=== PATIENT | male | born 1945 | race Asian ===

== ENCOUNTER 2016-04-02 05:19 | Emergency (ER) | payer MEDICARE, OTHER ==
[~2016-04-02] VITALS: Ht 154.9 cm; Wt 38.6 kg
[~2016-04-02 05:19] MED LIST: CARB200T5 GT; CHOL200035 GT; METO-296 GT; OMEP20 PO
[2016-04-02] MEDS ORDERED: DIATRIZOATE MEGLU/SOD 660/100 MG/ML 120 ML BOTTLE ONE (08:31)
[2016-04-02 09:47] VITALS: BP 116/47
== END 2016-04-02 09:48 | disposition home or self-care (01) ==
LOC: EMS 05:20
DX: Z93.1 Gastrostomy status (principal); Z88.8 Allergy status to other drugs, medicaments and biological substances
CPT/HCPCS: 36245; 49440; 99283; Q9963

== ENCOUNTER → 2016-06-12 | Outpatient (CLI) | payer MEDICARE, OTHER ==
[2016-06-12 12:42] LABS: BASOPHILS % (AUTO) 0.5 % (0.0-2.0); EOSINOPHILS % (AUTO) 5.8 % (1.0-6.0); HEMATOCRIT 37.7 % (41-53); HEMOGLOBIN 12.2 g/dL (13.5-17.5); LYMPHOCYTES # (AUTO) 2.5 K/uL (1.0-4.8); LYMPHOCYTES % (AUTO) 25.8 % (22.0-44.0); MEAN CORPUSCULAR HEMOGLOBIN 30.9 pg (26.0-34.0); MEAN CORPUSCULAR HGB CONC 32.3 G/dL (31.0-37.0); MEAN CORPUSCULAR VOLUME 96 fL (80-100); MONOCYTES # (AUTO) 0.8 K/uL (0.1-1.0); MONOCYTES % (AUTO) 8.6 % (2.0-9.0); NEUTROPHILS # (AUTO) 5.6 K/uL (1.8-7.7); NEUTROPHILS % (AUTO) 59.3 % (40.0-70.0); PLATELET COUNT (AUTO) 456 K/uL (150-450); RED BLOOD CELL COUNT(AUTO) 3.94 MIL/uL (4.50-5.90); RED CELL DISTRIBUTION WIDTH 14.1 % (11.5-14.5); WHITE BLOOD COUNT (AUTO) 9.5 K/uL (4.5-11.0)
[2016-06-12 13:39] LABS: ALANINE AMINOTRANSFERASE 27 U/L (12-78); ALBUMIN 3.3 g/dL (3.4-5.0); ANION GAP 11 mmol/L (8-16); ASPARTATE AMINOTRANSFERASE 22 U/L (15-37); BILIRUBIN,TOTAL 0.2 mg/dL (0.1-1.0); CALCIUM, TOTAL 8.7 mg/dL (8.8-10.5); CARBON DIOXIDE 28 mmol/L (22-29); CHLORIDE 102 mmol/L (98-107); CHOL/HDL RATIO 3.6 (4.2-7.3); CREATININE 0.81 mg/dL (0.60-1.30); GLOMERULAR FILTR. RATE CALC > 60 mL/min (>60); POTASSIUM 4.2 mmol/L (3.5-5.1); SODIUM SERUM 141 mmol/L (136-145); THYROID STIMULATING HORMONE 2.08 uIU/mL (0.36-3.74); UREA NITROGEN, BLOOD 19 mg/dL (7-18)
[2016-06-12 13:41] LABS: VITAMIN B12 LEVEL 1321 pg/mL (211-911)
[2016-06-12 17:34] LABS: PROSTATE SPECIFIC ANTIGEN < 0.13 ng/mL (0.00-4.00)
[2016-06-17 13:57] LABS: PRIMIDONE 8.4 ug/mL (5.0-12.0)
[2016-06-22 11:46] LABS: PHENOBARBITAL(PRIMIDONE) 16
== END | disposition home or self-care (01) ==
LOC: MSR 11:25
PROVIDERS: ATTEND Legal Medicine
DX: G40.909 Epilepsy, unspecified, not intractable, without status epilepticus (principal); J18.8 Other pneumonia, unspecified organism; E83.42 Hypomagnesemia
CPT/HCPCS: 80184; 80188; 82306; 82607; 82746; 83735; 84153; 84443

== ENCOUNTER 2016-08-09 12:42 | Emergency (ER) | payer MEDICARE, OTHER ==
[~2016-08-09] VITALS: Ht 154.9 cm; Wt 50.0 kg
[2016-08-09] MEDS ORDERED: DIATRIZOATE MEGLU/SOD 660/100 MG/ML 120 ML BOTTLE ONE (14:34)
[2016-08-09 16:05] VITALS: BP 146/67
== END 2016-08-09 17:05 | disposition home or self-care (01) ==
LOC: EMS 12:46
DX: K94.23 Gastrostomy malfunction (principal); R56.9 Unspecified convulsions; Z86.73 Personal history of transient ischemic attack (TIA), and cerebral infarction without residual deficits; Z86.61 Personal history of infections of the central nervous system; Z88.8 Allergy status to other drugs, medicaments and biological substances
CPT/HCPCS: 74000; 99283; Q9963

== ENCOUNTER → 2017-03-07 | Outpatient (CLI) | payer MEDICARE, OTHER ==
[2017-03-07 16:58] LABS: BASOPHILS % (AUTO) 0.6 % (0.0-2.0); EOSINOPHILS % (AUTO) 6.1 % (1.0-6.0); HEMATOCRIT 31.6 % (41-53); HEMOGLOBIN 10.9 g/dL (13.5-17.5); LYMPHOCYTES # (AUTO) 2.1 K/uL (1.0-4.8); LYMPHOCYTES % (AUTO) 19.4 % (22.0-44.0); MEAN CORPUSCULAR HEMOGLOBIN 31.6 pg (26.0-34.0); MEAN CORPUSCULAR HGB CONC 34.4 G/dL (31.0-37.0); MEAN CORPUSCULAR VOLUME 92 fL (80-100); MONOCYTES # (AUTO) 1.1 K/uL (0.1-1.0); MONOCYTES % (AUTO) 10.4 % (2.0-9.0); NEUTROPHILS # (AUTO) 6.8 K/uL (1.8-7.7); NEUTROPHILS % (AUTO) 63.5 % (40.0-70.0); PLATELET COUNT (AUTO) 381 K/uL (150-450); RED BLOOD CELL COUNT(AUTO) 3.44 MIL/uL (4.50-5.90); RED CELL DISTRIBUTION WIDTH 15.7 % (11.5-14.5)
[2017-03-07 17:14] LABS: ALANINE AMINOTRANSFERASE 22 U/L (12-78); ALBUMIN 2.8 g/dL (3.4-5.0); ALKALINE PHOSPHATASE 137 U/L (46-116); ANION GAP 7 mmol/L (8-16); ASPARTATE AMINOTRANSFERASE 26 U/L (15-37); BILIRUBIN,TOTAL 0.1 mg/dL (0.1-1.0); CALCIUM, TOTAL 8.4 mg/dL (8.8-10.5); CARBAMAZEPINE (TEGRETOL) 8.9 mcg/mL (4.0-12.0); CARBON DIOXIDE 27 mmol/L (22-29); CHLORIDE 100 mmol/L (98-107); CHOL/HDL RATIO 3.9 (4.2-7.3); CHOLESTEROL 159 mg/dL (131-200); CREATININE 0.83 mg/dL (0.60-1.30); GLOMERULAR FILTR. RATE CALC > 60 mL/min (>60); GLUCOSE,RANDOM 112 mg/dL (70-110); HDL CHOLESTEROL 41 mg/dL (40-60); LDL CHOL (CALC.) 89 mg/dL (0-130); POTASSIUM 3.9 mmol/L (3.5-5.1); SODIUM SERUM 134 mmol/L (136-145); THYROID STIMULATING HORMONE 1.83 uIU/mL (0.36-3.74); TOTAL PROTEIN, SERUM 8.5 g/dL (6.4-8.2); TRIGLYCERIDES 144 mg/dL (15-150); UREA NITROGEN, BLOOD 15 mg/dL (7-18)
== END | disposition home or self-care (01) ==
LOC: LABPV 15:18
PROVIDERS: ATTEND Legal Medicine
DX: K21.9 Gastro-esophageal reflux disease without esophagitis (principal); R56.9 Unspecified convulsions; Z79.899 Other long term (current) drug therapy
CPT/HCPCS: 80184; 80188; 82306; 84443

== ENCOUNTER → 2017-03-12 | Outpatient (CLI) | payer MEDICARE, OTHER ==
[2017-03-12 17:53] LABS: % IRON SATURATION 10.5 % (30-44)
[2017-03-12 19:26] LABS: FOLATE SERUM 16.4 ng/mL (5.4-)
[2017-03-17 07:28] LABS: ALPHA-1 (IFE & PEP) 0.4 g/dL (0.0-0.4); GAMMA GLOBULINS (IFE & ELP) 2.5 g/dL (0.4-1.8); IGM (IMMUNOFIXATION) 133 mg/dL (20-172)
== END | disposition home or self-care (01) ==
LOC: LABPV 14:55
PROVIDERS: ATTEND Legal Medicine
DX: Z00.01 Encounter for general adult medical examination with abnormal findings (principal); K21.9 Gastro-esophageal reflux disease without esophagitis; R79.89 Other specified abnormal findings of blood chemistry
CPT/HCPCS: 82607; 82728; 82746; 82784; 83540; 83550; 84155; 84165; 86334

== ENCOUNTER 2017-04-20 17:14 | Emergency (ER) | payer MEDICARE, OTHER ==
[~2017-04-20] VITALS: Ht 142.2 cm; Wt 39.4 kg
[~2017-04-20 17:14] MED LIST changes: -CHOL200035 GT; -OMEP20 PO; +PRIM250T30 PO
[2017-04-20 19:40] VITALS: BP 99/70
== END 2017-04-20 19:46 | disposition home or self-care (01) ==
LOC: EMS 17:15
DX: K94.23 Gastrostomy malfunction (principal); Z88.8 Allergy status to other drugs, medicaments and biological substances
CPT/HCPCS: 49450; 99284

== ENCOUNTER 2017-05-05 15:49 | Emergency (ER) | payer MEDICARE, OTHER ==
[~2017-05-05] VITALS: Ht 147.3 cm; Wt 40.9 kg
[2017-05-05 17:15] VITALS: BP 110/59
== END 2017-05-05 18:40 | disposition home or self-care (01) ==
LOC: EMS 15:56
DX: K94.23 Gastrostomy malfunction (principal); R62.59 Other lack of expected normal physiological development in childhood; J18.9 Pneumonia, unspecified organism; F72 Severe intellectual disabilities; Z86.61 Personal history of infections of the central nervous system; Z88.8 Allergy status to other drugs, medicaments and biological substances; Z79.899 Other long term (current) drug therapy
CPT/HCPCS: 43760; 99284

== ENCOUNTER 2017-05-28 21:00 | Emergency (ER) | payer MEDICARE, OTHER ==
[~2017-05-28] VITALS: Ht 154.9 cm; Wt 29.2 kg
[2017-05-28 23:16] VITALS: BP 106/58
== END 2017-05-28 23:19 | disposition home or self-care (01) ==
LOC: EMS 21:00
DX: K94.23 Gastrostomy malfunction (principal); Z88.8 Allergy status to other drugs, medicaments and biological substances
CPT/HCPCS: 99283

== ENCOUNTER 2017-06-02 08:45 | Emergency (ER) | payer MEDICARE, OTHER ==
[~2017-06-02] VITALS: Ht 147.3 cm; Wt 38.6 kg
[2017-06-02 11:07] LABS: BASOPHILS % (AUTO) 0.8 % (0.0-2.0); EOSINOPHILS % (AUTO) 4.6 % (1.0-6.0); HEMATOCRIT 34.4 % (41-53); HEMOGLOBIN 11.7 g/dL (13.5-17.5); LYMPHOCYTES # (AUTO) 2.6 K/uL (1.0-4.8); LYMPHOCYTES % (AUTO) 21.9 % (22.0-44.0); MEAN CORPUSCULAR HEMOGLOBIN 31.2 pg (26.0-34.0); MEAN CORPUSCULAR HGB CONC 33.9 G/dL (31.0-37.0); MEAN CORPUSCULAR VOLUME 92 fL (80-100); MONOCYTES # (AUTO) 0.7 K/uL (0.1-1.0); MONOCYTES % (AUTO) 5.8 % (2.0-9.0); NEUTROPHILS % (AUTO) 66.9 % (40.0-70.0); PLATELET COUNT (AUTO) 477 K/uL (150-450); RED BLOOD CELL COUNT(AUTO) 3.73 MIL/uL (4.50-5.90); RED CELL DISTRIBUTION WIDTH 15.7 % (11.5-14.5)
[2017-06-02 11:16] LABS: PROTHROMBIN TIME 10.3 SEC (9.4-11.6)
[2017-06-02 11:22] LABS: ANION GAP 11 mmol/L (8-16); CALCIUM, TOTAL 8.8 mg/dL (8.8-10.5); CARBON DIOXIDE 27 mmol/L (22-29); CHLORIDE 104 mmol/L (98-107); CREATININE 0.88 mg/dL (0.60-1.30); GLOMERULAR FILTR. RATE CALC > 60 mL/min (>60); GLUCOSE,RANDOM 109 mg/dL (70-110); POTASSIUM 3.9 mmol/L (3.5-5.1); SODIUM SERUM 142 mmol/L (136-145); UREA NITROGEN, BLOOD 18 mg/dL (7-18)
[2017-06-02] MEDS ORDERED: DIATRIZOATE MEGLU/SOD 660/100 MG/ML 120 ML BOTTLE ONE (13:23)
[2017-06-02 14:38] VITALS: BP 122/80
== END 2017-06-02 14:54 | disposition home or self-care (01) ==
LOC: EMS 08:46
DX: K94.23 Gastrostomy malfunction (principal); Z88.8 Allergy status to other drugs, medicaments and biological substances
CPT/HCPCS: 36415; 49450; 80048; 85025; 85610; 99284; Q9963

== ENCOUNTER 2017-12-05 15:11 | Inpatient (IN) | payer MEDICARE, OTHER ==
[~2017-12-05] VITALS: Ht 154.9 cm; Wt 38.0 kg
[2017-12-05 16:10] LABS: BASOPHILS % (AUTO) 0.3 % (0.0-2.0); EOSINOPHILS % (AUTO) 0.3 % (1.0-6.0); HEMATOCRIT 30.6 % (41-53); HEMOGLOBIN 10.5 g/dL (13.5-17.5); LYMPHOCYTES # (AUTO) 1.2 K/uL (1.0-4.8); LYMPHOCYTES % (AUTO) 8.1 % (22.0-44.0); MEAN CORPUSCULAR HEMOGLOBIN 31.3 pg (26.0-34.0); MEAN CORPUSCULAR HGB CONC 34.3 G/dL (31.0-37.0); MEAN CORPUSCULAR VOLUME 91 fL (80-100); MONOCYTES # (AUTO) 1.4 K/uL (0.1-1.0); MONOCYTES % (AUTO) 9.3 % (2.0-9.0); NEUTROPHILS # (AUTO) 12.3 K/uL (1.8-7.7); PLATELET COUNT (AUTO) 262 K/uL (150-450); RED BLOOD CELL COUNT(AUTO) 3.35 MIL/uL (4.50-5.90); RED CELL DISTRIBUTION WIDTH 15.4 % (11.5-14.5)
[2017-12-05 16:31] LABS: ANION GAP 4 mmol/L (8-16); CALCIUM, TOTAL 8.4 mg/dL (8.8-10.5); CARBON DIOXIDE 27 mmol/L (22-29); CHLORIDE 95 mmol/L (98-107); CREATININE 0.91 mg/dL (0.60-1.30); GLOMERULAR FILTR. RATE CALC > 60 mL/min (>60); GLUCOSE,RANDOM 109 mg/dL (70-110); POTASSIUM 4.9 mmol/L (3.5-5.1); SODIUM SERUM 126 mmol/L (136-145); UREA NITROGEN, BLOOD 28 mg/dL (7-18)
[2017-12-05] MEDS ORDERED: SODIUM CHLORIDE 0.9% 1,000 ML IV ONE ×2 (16:45→21:30)
[2017-12-05] MEDS ORDERED: POVIDONE-IODINE 10% 120 ML SOLUTION TP ONE (17:45)
[2017-12-05] MEDS ORDERED: DIATRIZOATE MEGLU/SOD 660/100 MG/ML 120 ML BOTTLE ONE (19:02)
[2017-12-05 20:55] LABS: ANION GAP 6 mmol/L (8-16); CALCIUM, TOTAL 8.7 mg/dL (8.8-10.5); CARBON DIOXIDE 24 mmol/L (22-29); CHLORIDE 98 mmol/L (98-107); CREATININE 0.86 mg/dL (0.60-1.30); GLOMERULAR FILTR. RATE CALC > 60 mL/min (>60); GLUCOSE,RANDOM 104 mg/dL (70-110); POTASSIUM 4.9 mmol/L (3.5-5.1); SODIUM SERUM 128 mmol/L (136-145); UREA NITROGEN, BLOOD 25 mg/dL (7-18)
[2017-12-05] MEDS ORDERED: MAGNESIUM HYDROXIDE SUSPENSION 30 ML UDCUP PEG PRN (21:30)
[2017-12-05] MEDS ORDERED: MAGNESIUM HYDROXIDE SUSPENSION 30 ML UDCUP PO PRN (21:30)
[2017-12-05] MEDS ORDERED: ALBUTEROL SULFATE 2.5 MG/0.5 ML NEB SOLUTION NEB PRN (21:30)
[2017-12-05] MEDS ORDERED: ACETAMINOPHEN 650 MG/20.3 ML SOLUTION UDCUP PEG PRN (21:30)
[2017-12-05 22:15] VITALS: BP 134/77
[2017-12-06 04:00] VITALS: BP 125/64
[2017-12-06 07:03] LABS: ANION GAP 8 mmol/L (8-16); CALCIUM, TOTAL 6.4 mg/dL (8.8-10.5); CARBON DIOXIDE 21 mmol/L (22-29); CHLORIDE 111 mmol/L (98-107); CREATININE 0.57 mg/dL (0.60-1.30); GLOMERULAR FILTR. RATE CALC > 60 mL/min (>60); GLUCOSE,RANDOM 84 mg/dL (70-110); POTASSIUM 3.4 mmol/L (3.5-5.1); SODIUM SERUM 140 mmol/L (136-145); UREA NITROGEN, BLOOD 15 mg/dL (7-18)
[2017-12-06 07:15] LABS: BASOPHILS % (AUTO) 0.7 % (0.0-2.0); EOSINOPHILS % (AUTO) 1.6 % (1.0-6.0); HEMATOCRIT 23.5 % (41-53); LYMPHOCYTES # (AUTO) 1.4 K/uL (1.0-4.8); LYMPHOCYTES % (AUTO) 14.9 % (22.0-44.0); MEAN CORPUSCULAR HEMOGLOBIN 32.2 pg (26.0-34.0); MEAN CORPUSCULAR HGB CONC 34.8 G/dL (31.0-37.0); MEAN CORPUSCULAR VOLUME 93 fL (80-100); MONOCYTES # (AUTO) 0.8 K/uL (0.1-1.0); MONOCYTES % (AUTO) 8.8 % (2.0-9.0); NEUTROPHILS # (AUTO) 6.8 K/uL (1.8-7.7); PLATELET COUNT (AUTO) 207 K/uL (150-450); RED BLOOD CELL COUNT(AUTO) 2.54 MIL/uL (4.50-5.90); RED CELL DISTRIBUTION WIDTH 15.5 % (11.5-14.5)
[2017-12-06 07:16] LABS: HEMOGLOBIN 8.2 g/dL (13.5-17.5)
[2017-12-06] MEDS ORDERED: DEXTROSE 5%-0.45% SODIUM CHL 1,000 ML IV ONE (08:15)
[2017-12-06] MEDS ORDERED: POTASSIUM CHLORIDE 10% 40 MEQ/30 ML LIQUID UDCUP PEG ONE (08:15)
[2017-12-06 08:23] VITALS: BP 137/82
[2017-12-06] MEDS ORDERED: CarBAMazepine 100 MG CHEWABLE TABLET PEG SCH (09:00)
[2017-12-06] MEDS: DOCUSATE SODIUM 100 MG CAPSULE PO SCH ×2 (09:00→21:00)
[2017-12-06] MEDS: HEPARIN SODIUM,PORCINE 5,000 UNITS/ML VIAL SQ SCH ×2 (09:00→21:01)
[2017-12-06] MEDS ORDERED: PANTOPRAZOLE SODIUM 40 MG DR TABLET PO SCH (09:00)
[2017-12-06] MEDS: LANSOPRAZOLE 30 MG SOLUBLE TABLET PEG SCH (09:55)
[2017-12-06] MEDS: CarBAMazepine 100 MG CHEWABLE TABLET PEG SCH ×2 (09:56→21:01)
[2017-12-06 11:19] LABS: APPEARANCE,URINE CLOUDY (CLEAR); BILIRUBIN,URINE NEGATIVE (NEGATIVE); GLUCOSE, URINE (UA) NEGATIVE (NEGATIVE); KETONES,URINE TRACE mg/dL (NEGATIVE); LEUKOCYTE ESTERASE ,URINE LARGE (NEGATIVE); NITRATE,URINE NEGATIVE (NEGATIVE); OCCULT BLOOD,URINE LARGE (NEGATIVE); PH,URINE 6.5 (5.0-8.0); PROTEIN,URINE POS 1+ (NEGATIVE)
[2017-12-06 11:27] LABS: BACTERIA,URINE Many /HPF (None Seen)
[2017-12-06 11:31] VITALS: BP 137/78
[2017-12-06 15:37] VITALS: BP 123/72
[2017-12-06 20:06] VITALS: BP 137/67
[2017-12-06 23:44] VITALS: BP 139/66
[2017-12-07 04:45] VITALS: BP 149/89
[2017-12-07 06:30] LABS: BASOPHILS % (AUTO) 0.6 % (0.0-2.0); EOSINOPHILS % (AUTO) 3.3 % (1.0-6.0); HEMATOCRIT 30.3 % (41-53); HEMOGLOBIN 10.3 g/dL (13.5-17.5); LYMPHOCYTES # (AUTO) 1.8 K/uL (1.0-4.8); LYMPHOCYTES % (AUTO) 18.2 % (22.0-44.0); MEAN CORPUSCULAR HEMOGLOBIN 31.4 pg (26.0-34.0); MEAN CORPUSCULAR HGB CONC 34.1 G/dL (31.0-37.0); MEAN CORPUSCULAR VOLUME 92 fL (80-100); MONOCYTES % (AUTO) 10.8 % (2.0-9.0); NEUTROPHILS # (AUTO) 6.5 K/uL (1.8-7.7); NEUTROPHILS % (AUTO) 67.1 % (40.0-70.0); PLATELET COUNT (AUTO) 289 K/uL (150-450); RED CELL DISTRIBUTION WIDTH 15.3 % (11.5-14.5)
[2017-12-07 06:52] LABS: ANION GAP 7 mmol/L (8-16); CALCIUM, TOTAL 8.7 mg/dL (8.8-10.5); CARBON DIOXIDE 27 mmol/L (22-29); CHLORIDE 99 mmol/L (98-107); CREATININE 0.68 mg/dL (0.60-1.30); GLOMERULAR FILTR. RATE CALC > 60 mL/min (>60); GLUCOSE,RANDOM 112 mg/dL (70-110); POTASSIUM 4.4 mmol/L (3.5-5.1); SODIUM SERUM 133 mmol/L (136-145); UREA NITROGEN, BLOOD 9 mg/dL (7-18)
[2017-12-07 08:00] VITALS: BP 126/86
[2017-12-07] MEDS: LANSOPRAZOLE 30 MG SOLUBLE TABLET PEG SCH (08:00)
[2017-12-07] MEDS: CarBAMazepine 100 MG CHEWABLE TABLET PEG SCH (08:00)
[2017-12-07] MEDS: HEPARIN SODIUM,PORCINE 5,000 UNITS/ML VIAL SQ SCH (08:00)
[2017-12-07] MEDS: DOCUSATE SODIUM 100 MG CAPSULE PO SCH (08:01)
[2017-12-07] MEDS ORDERED: CefTRIAXone SODIUM 1 GM in DEXTROSE 5%-WATER 10 ML IV ONE (10:30)
[2017-12-07 11:15] VITALS: BP 145/81
== END 2017-12-07 13:23 | disposition home or self-care (01) | DRG 393 ==
LOC: EMS 15:12 → 6N 21:00
PROVIDERS: ADMIT Internal Medicine; ATTEND Internal Medicine
PROC: 0D20XUZ Change Feeding Device in Upper Intestinal Tract, External Approach (ICD-10-PCS; principal; 2017-12-05)
DX: K94.23 Gastrostomy malfunction (principal); E43 Unspecified severe protein-calorie malnutrition; E87.1 Hypo-osmolality and hyponatremia; G93.1 Anoxic brain damage, not elsewhere classified; E46 Unspecified protein-calorie malnutrition; Z68.1 Body mass index [BMI] 19.9 or less, adult; N39.0 Urinary tract infection, site not specified; E86.0 Dehydration; R13.10 Dysphagia, unspecified; R62.7 Adult failure to thrive; S06.9X0A Unspecified intracranial injury without loss of consciousness, initial encounter; X58.XXXA Exposure to other specified factors, initial encounter; D64.9 Anemia, unspecified; G40.909 Epilepsy, unspecified, not intractable, without status epilepticus; Z66 Do not resuscitate; E87.6 Hypokalemia; Z90.49 Acquired absence of other specified parts of digestive tract; Z87.01 Personal history of pneumonia (recurrent); Y93.89 Activity, other specified; Y92.89 Other specified places as the place of occurrence of the external cause; Y99.8 Other external cause status
CPT/HCPCS: 74018; 87086; 90686; 96360; 96361; 99285; J0696; J1644; J7030; J7060

== ENCOUNTER 2018-04-08 11:26 | Day surgery (SDC) | payer MEDICARE, OTHER ==
[~2018-04-08] VITALS: Ht 142.2 cm; Wt 30.7 kg
[~2018-04-08 11:26] MED LIST changes: -CARB200T5 GT; +CARBL PEG; +OMEP20 PEG; -PRIM250T30 PO; +SODIUM CHLORIDE 0.9% 1,000 ML IV ONE
[2018-04-08] MEDS ORDERED: PROPOFOL 1% 20 ML VIAL IVP ONE (12:00)
[2018-04-08] MEDS: SODIUM CHLORIDE 0.9% 1,000 ML IV ONE (13:15)
== END 2018-04-08 15:20 | disposition home or self-care (01) ==
LOC: SURGERY 11:26
PROVIDERS: ATTEND Internal Medicine Gastroenterology
DX: K94.23 Gastrostomy malfunction (principal); G80.8 Other cerebral palsy; G93.89 Other specified disorders of brain; Z87.01 Personal history of pneumonia (recurrent); Z90.49 Acquired absence of other specified parts of digestive tract; Z87.440 Personal history of urinary (tract) infections; Z87.19 Personal history of other diseases of the digestive system; Z91.048 Other nonmedicinal substance allergy status; Z86.69 Personal history of other diseases of the nervous system and sense organs; Z79.899 Other long term (current) drug therapy; Z98.890 Other specified postprocedural states; Z83.511 Family history of glaucoma; Z82.0 Family history of epilepsy and other diseases of the nervous system; Z82.49 Family history of ischemic heart disease and other diseases of the circulatory system; Z83.42 Family history of familial hypercholesterolemia; Z80.1 Family history of malignant neoplasm of trachea, bronchus and lung; Z80.0 Family history of malignant neoplasm of digestive organs; Z82.69 Family history of other diseases of the musculoskeletal system and connective tissue
CPT/HCPCS: 43246; J2704; J7030

== ENCOUNTER 2018-05-13 15:28 | Inpatient (IN) | payer MEDICARE, OTHER ==
[~2018-05-13] VITALS: Ht 142.2 cm; Wt 37.4 kg
[~2018-05-13 15:28] MED LIST changes: -METO-296 GT; +METO-296 PO; -SODIUM CHLORIDE 0.9% 1,000 ML IV ONE
[2018-05-13] MEDS ORDERED: PRIM50 PO (15:53)
[2018-05-13] MEDS ORDERED: CARB100 PO (15:53)
[2018-05-13] MEDS ORDERED: SODIUM CHLORIDE 0.9% 1,050 ML IV ONE (15:58)
[2018-05-13] MEDS ORDERED: 0.9% SODIUM CHLORIDE 10 ML SYRINGE IVP PRN (16:00)
[2018-05-13 16:54] LABS: BASOPHILS % (AUTO) 0.2 % (0.0-2.0); EOSINOPHILS % (AUTO) 0.5 % (1.0-6.0); LYMPHOCYTES # (AUTO) 0.8 K/uL (1.0-4.8); LYMPHOCYTES % (AUTO) 3.3 % (22.0-44.0); MEAN CORPUSCULAR HEMOGLOBIN 27.7 pg (26.0-34.0); MEAN CORPUSCULAR HGB CONC 33.2 G/dL (31.0-37.0); MEAN CORPUSCULAR VOLUME 83 fL (80-100); MONOCYTES # (AUTO) 0.9 K/uL (0.1-1.0); MONOCYTES % (AUTO) 3.8 % (2.0-9.0); PLATELET COUNT (AUTO) 358 K/uL (150-450); RED BLOOD CELL COUNT(AUTO) 2.28 MIL/uL (4.50-5.90); RED CELL DISTRIBUTION WIDTH 17.7 % (11.5-14.5)
[2018-05-13 17:01] LABS: HEMOGLOBIN 6.3 g/dL (13.5-17.5); NEUTROPHILS % (AUTO) 92.2 % (40.0-70.0)
[2018-05-13 17:03] LABS: ANION GAP 7 mmol/L (8-16); CARBON DIOXIDE 25 mmol/L (22-29); CHLORIDE 100 mmol/L (98-107); CREATININE 0.86 mg/dL (0.60-1.30); GLOMERULAR FILTR. RATE CALC > 60 mL/min (>60); GLUCOSE,RANDOM 135 mg/dL (70-110); POTASSIUM 3.8 mmol/L (3.5-5.1); SODIUM SERUM 132 mmol/L (136-145); UREA NITROGEN, BLOOD 32 mg/dL (7-18)
[2018-05-13 17:13] LABS: B-TYPE NATRIURETIC PEPTIDE 212 pg/mL (0-100); INR 1.1 (0.9-1.1); LACTIC ACID 2.3 mmol/L (0.4-2.0); PROTHROMBIN TIME 11.6 SEC (9.4-11.6)
[2018-05-13] MEDS ORDERED: CefTRIAXone 1 GM/DEXTROSE 50 ML IV ONE (17:15)
[2018-05-13] MEDS ORDERED: AZITHROMYCIN 500 MG/NS 250 ML IV ONE (17:15)
[2018-05-13 17:19] LABS: ALANINE AMINOTRANSFERASE 30 U/L (12-78); ALBUMIN 1.7 g/dL (3.4-5.0); ALKALINE PHOSPHATASE 121 U/L (46-116); ASPARTATE AMINOTRANSFERASE 42 U/L (15-37); BILIRUBIN,TOTAL 0.5 mg/dL (0.1-1.0); CARBAMAZEPINE (TEGRETOL) 12.8 mcg/mL (4.0-12.0); CREATINE KINASE, TOTAL ONLY 25 U/L (39-308); TOTAL PROTEIN, SERUM 7.3 g/dL (6.4-8.2)
[2018-05-13 17:24] LABS: PLATELET MORPHOLOGY COMMENT NORMAL
[2018-05-13 17:55] LABS: INFLUENZA TYPE A NEGATIVE FOR TYPE A (NEGATIVE); INFLUENZA TYPE B NEGATIVE FOR TYPE B (NEGATIVE)
[2018-05-13] MEDS ORDERED: ALBUTEROL SULFATE 2.5 MG/0.5 ML NEB SOLUTION NEB ONE (19:00)
[2018-05-13] MEDS ORDERED: IPRATROPIUM BROMIDE 0.5 MG/2.5 ML NEB SOLUTION NEB ONE (19:00)
[2018-05-13] MEDS ORDERED: ACETAMINOPHEN 1000 MG/ISO-OSM 100 ML IV ONE (19:45)
[2018-05-13] MEDS ORDERED: IBUPROFEN 600 MG TABLET PO PRN (20:45)
[2018-05-13] MEDS ORDERED: ACETAMINOPHEN 325 MG TABLET PO PRN (20:45)
[2018-05-13] MEDS ORDERED: SODIUM CHLORIDE 0.9% 1,000 ML IV ONE (21:00)
[2018-05-13] MEDS ORDERED: MAGNESIUM HYDROXIDE SUSPENSION 30 ML UDCUP PO PRN (21:15)
[2018-05-13] MEDS ORDERED: ONDANSETRON HCL 4 MG/2 ML VIAL IVP PRN (21:15)
[2018-05-13] MEDS ORDERED: BISACODYL 10 MG RECTAL RECTAL SUPPOSITORY PR PRN (21:15)
[2018-05-13] MEDS ORDERED: NOREPINEPHRINE 4 MG/D5%-WATER 250 ML IV PRN (21:20)
[2018-05-13] MEDS ORDERED: SODIUM CHLORIDE 0.9% 250 ML IV ONE (22:16)
[2018-05-13 22:28] VITALS: BP 68/30
[2018-05-13 22:42] VITALS: BP 89/58
[2018-05-13 23:22] VITALS: BP 78/57
[2018-05-14] VITALS: BP 111/43
[2018-05-14] MEDS: SODIUM CHLORIDE 0.9% 1,000 ML IV SCH ×2 (01:10→10:17)
[2018-05-14] MEDS: IPRATROPIUM BROMIDE 0.5 MG/2.5 ML NEB SOLUTION NEB SCH ×4 (01:51→20:00)
[2018-05-14] MEDS: ALBUTEROL SULFATE 2.5 MG/0.5 ML NEB SOLUTION NEB SCH ×4 (01:51→20:00)
[2018-05-14 04:00] VITALS: BP 129/69
[2018-05-14 08:00] VITALS: BP 107/58
[2018-05-14] MEDS: ENOXAPARIN SODIUM 40 MG/0.4 ML PF SYRINGE SQ SCH (08:16)
[2018-05-14] MEDS: PANTOPRAZOLE SODIUM 40 MG/VIAL IVP SCH (08:16)
[2018-05-14] MEDS: CarBAMazepine 100 MG CHEWABLE TABLET PO SCH ×3 (08:17→20:58)
[2018-05-14] MEDS: PRIMIDONE 250 MG TABLET PO SCH (08:17)
[2018-05-14] MEDS: METOCLOPRAMIDE HCL 10 MG TABLET PO SCH ×4 (08:17→20:58)
[2018-05-14 10:04] LABS: BASOPHILS % (AUTO) 0.2 % (0.0-2.0); EOSINOPHILS % (AUTO) 0.1 % (1.0-6.0); HEMATOCRIT 27.2 % (41-53); HEMOGLOBIN 9.1 g/dL (13.5-17.5); LYMPHOCYTES # (AUTO) 0.6 K/uL (1.0-4.8); LYMPHOCYTES % (AUTO) 3.3 % (22.0-44.0); MEAN CORPUSCULAR HEMOGLOBIN 28.3 pg (26.0-34.0); MEAN CORPUSCULAR HGB CONC 33.3 G/dL (31.0-37.0); MEAN CORPUSCULAR VOLUME 85 fL (80-100); MONOCYTES % (AUTO) 5.2 % (2.0-9.0); NEUTROPHILS # (AUTO) 17.4 K/uL (1.8-7.7); PLATELET COUNT (AUTO) 345 K/uL (150-450); RED CELL DISTRIBUTION WIDTH 17.5 % (11.5-14.5)
[2018-05-14 10:05] LABS: NEUTROPHILS % (AUTO) 91.2 % (40.0-70.0)
[2018-05-14 11:03] LABS: LACTIC ACID 3.3 mmol/L (0.4-2.0)
[2018-05-14 11:06] LABS: ANION GAP 11 mmol/L (8-16); CALCIUM, TOTAL 7.7 mg/dL (8.8-10.5); CARBON DIOXIDE 22 mmol/L (22-29); CHLORIDE 104 mmol/L (98-107); CHOL/HDL RATIO 7.8 (4.2-7.3); CHOLESTEROL 62 mg/dL (131-200); CREATINE KINASE, TOTAL ONLY 44 U/L (39-308); CREATININE 0.87 mg/dL (0.60-1.30); FREE T4 (FREE THYROXINE) 1.25 ng/dL (0.76-1.46); GLOMERULAR FILTR. RATE CALC > 60 mL/min (>60); GLUCOSE,RANDOM 99 mg/dL (70-110); HDL CHOLESTEROL 8 mg/dL (40-60); LDL CHOL (CALC.) 39 mg/dL (0-130); POTASSIUM 3.9 mmol/L (3.5-5.1); SODIUM SERUM 137 mmol/L (136-145); THYROID STIMULATING HORMONE 6.58 uIU/mL (0.36-3.74); TRIGLYCERIDES 76 mg/dL (15-150); UREA NITROGEN, BLOOD 22 mg/dL (7-18)
[2018-05-14 12:00] VITALS: BP 104/57
[2018-05-14] MEDS: MetroNIDAZOLE 500 MG/NACL 100 ML IV SCH ×2 (13:38→20:59)
[2018-05-14 16:00] VITALS: BP 119/52
[2018-05-14] MEDS: CefTRIAXone 1 GM/DEXTROSE 50 ML IV SCH (16:53)
[2018-05-14] MEDS: AZITHROMYCIN 250 MG in SODIUM CHLORIDE 0.9% 150 ML IV SCH (17:50)
[2018-05-14 20:00] VITALS: BP 115/37
[2018-05-14] MEDS: VANCOMYCIN HCL 750 MG in DEXTROSE 5%-WATER 250 ML IV SCH (20:55)
[2018-05-15] VITALS (17 sets, daily range): BP systolic 51–120; BP diastolic 32–76
[2018-05-15] MEDS: ALBUTEROL SULFATE 2.5 MG/0.5 ML NEB SOLUTION NEB SCH ×4 (00:52→20:23)
[2018-05-15] MEDS: IPRATROPIUM BROMIDE 0.5 MG/2.5 ML NEB SOLUTION NEB SCH ×4 (00:52→20:23)
[2018-05-15] MEDS: MetroNIDAZOLE 500 MG/NACL 100 ML IV SCH ×3 (04:44→22:11)
[2018-05-15] MEDS: SODIUM CHLORIDE 0.9% 1,000 ML IV SCH ×2 (04:45→11:40)
[2018-05-15 06:11] LABS: BASOPHILS % (AUTO) 0.2 % (0.0-2.0); EOSINOPHILS % (AUTO) 0 % (1.0-6.0); LYMPHOCYTES # (AUTO) 1.1 K/uL (1.0-4.8); LYMPHOCYTES % (AUTO) 4.9 % (22.0-44.0); MEAN CORPUSCULAR HGB CONC 33.3 G/dL (31.0-37.0); MEAN CORPUSCULAR VOLUME 84 fL (80-100); MONOCYTES # (AUTO) 0.7 K/uL (0.1-1.0); MONOCYTES % (AUTO) 3.2 % (2.0-9.0); NEUTROPHILS # (AUTO) 19.8 K/uL (1.8-7.7); PLATELET COUNT (AUTO) 277 K/uL (150-450); RED BLOOD CELL COUNT(AUTO) 2.43 MIL/uL (4.50-5.90); RED CELL DISTRIBUTION WIDTH 16.9 % (11.5-14.5)
[2018-05-15 06:49] LABS: ANION GAP 13 mmol/L (8-16); CALCIUM, TOTAL 7.6 mg/dL (8.8-10.5); CARBON DIOXIDE 19 mmol/L (22-29); CHLORIDE 108 mmol/L (98-107); CREATININE 0.73 mg/dL (0.60-1.30); GLOMERULAR FILTR. RATE CALC > 60 mL/min (>60); GLUCOSE,RANDOM 113 mg/dL (70-110); POTASSIUM 3.3 mmol/L (3.5-5.1); SODIUM SERUM 140 mmol/L (136-145); UREA NITROGEN, BLOOD 15 mg/dL (7-18)
[2018-05-15 07:23] LABS: HEMOGLOBIN 6.8 g/dL (13.5-17.5)
[2018-05-15 07:24] LABS: HEMATOCRIT 20.4 % (41-53); NEUTROPHILS % (AUTO) 91.7 % (40.0-70.0)
[2018-05-15] MEDS: PANTOPRAZOLE SODIUM 40 MG/VIAL IVP SCH (07:47)
[2018-05-15] MEDS: VANCOMYCIN HCL 750 MG in DEXTROSE 5%-WATER 250 ML IV SCH ×2 (07:47→20:09)
[2018-05-15] MEDS: METOCLOPRAMIDE HCL 10 MG TABLET PO SCH ×4 (09:10→20:09)
[2018-05-15] MEDS: CarBAMazepine 100 MG CHEWABLE TABLET PO SCH ×3 (09:10→20:09)
[2018-05-15] MEDS: ENOXAPARIN SODIUM 40 MG/0.4 ML PF SYRINGE SQ SCH (09:10)
[2018-05-15] MEDS: PRIMIDONE 250 MG TABLET PO SCH (09:10)
[2018-05-15 09:19] LABS: PLATELET MORPHOLOGY COMMENT GIANT PLTS PRESENT
[2018-05-15] MEDS ORDERED: PRIM250T24 PO (11:57)
[2018-05-15] MEDS ORDERED: DiphenhydrAMINE HCL 50 MG/ML VIAL IVP ONE (12:00)
[2018-05-15] MEDS ORDERED: SODIUM CHLORIDE 0.9% 250 ML IV ONE (13:03)
[2018-05-15] MEDS: CefTRIAXone 1 GM/DEXTROSE 50 ML IV SCH (15:53)
[2018-05-15] MEDS: EPOETIN ALFA 10,000 UNITS/ML VIAL SQ SCH (16:54)
[2018-05-15] MEDS: AZITHROMYCIN 250 MG in SODIUM CHLORIDE 0.9% 150 ML IV SCH (16:55)
[2018-05-16 00:02] VITALS: BP 123/55
[2018-05-16] MEDS: ALBUTEROL SULFATE 2.5 MG/0.5 ML NEB SOLUTION NEB SCH ×4 (01:28→19:33)
[2018-05-16] MEDS: IPRATROPIUM BROMIDE 0.5 MG/2.5 ML NEB SOLUTION NEB SCH ×4 (01:28→19:33)
[2018-05-16 04:20] VITALS: BP 95/48
[2018-05-16] MEDS: MetroNIDAZOLE 500 MG/NACL 100 ML IV SCH ×3 (04:50→22:12)
[2018-05-16 06:47] LABS: HEMATOCRIT 26.4 % (41-53); HEMOGLOBIN 9.1 g/dL (13.5-17.5); MEAN CORPUSCULAR HEMOGLOBIN 28.1 pg (26.0-34.0); MEAN CORPUSCULAR HGB CONC 34.3 G/dL (31.0-37.0); MEAN CORPUSCULAR VOLUME 82 fL (80-100); PLATELET COUNT (AUTO) 251 K/uL (150-450); RED BLOOD CELL COUNT(AUTO) 3.23 MIL/uL (4.50-5.90); RED CELL DISTRIBUTION WIDTH 15.8 % (11.5-14.5)
[2018-05-16 07:13] LABS: ANION GAP 13 mmol/L (8-16); CALCIUM, TOTAL 7.1 mg/dL (8.8-10.5); CARBON DIOXIDE 19 mmol/L (22-29); CHLORIDE 109 mmol/L (98-107); CREATININE 0.87 mg/dL (0.60-1.30); GLOMERULAR FILTR. RATE CALC > 60 mL/min (>60); GLUCOSE,RANDOM 136 mg/dL (70-110); SODIUM SERUM 141 mmol/L (136-145); UREA NITROGEN, BLOOD 12 mg/dL (7-18); VANCOMYCIN,RANDOM 17.3 mcg/mL (25.0-50.0)
[2018-05-16 07:32] LABS: POTASSIUM 2.8 mmol/L (3.5-5.1)
[2018-05-16] MEDS: VANCOMYCIN HCL 750 MG in DEXTROSE 5%-WATER 250 ML IV SCH ×2 (07:53→20:39)
[2018-05-16] MEDS: PANTOPRAZOLE SODIUM 40 MG/VIAL IVP SCH (07:53)
[2018-05-16 08:05] LABS: BAND NEUTROPHILS % (MANUAL) 11 % (0-5); LYMPHOCYTES % (MANUAL) 10 % (22-44); MONOCYTES % (MANUAL) 2 % (2-9); SEGMENTED NEUTROPHILS % 77 % (40-70)
[2018-05-16] MEDS: ENOXAPARIN SODIUM 40 MG/0.4 ML PF SYRINGE SQ SCH (08:26)
[2018-05-16] MEDS: CarBAMazepine 100 MG CHEWABLE TABLET PO SCH ×3 (08:27→20:39)
[2018-05-16] MEDS: METOCLOPRAMIDE HCL 10 MG TABLET PO SCH ×4 (08:27→20:39)
[2018-05-16] MEDS: PRIMIDONE 250 MG TABLET PO SCH (08:27)
[2018-05-16 08:29] VITALS: BP 102/52
[2018-05-16] MEDS ORDERED: POTASSIUM CHLORIDE 10% 40 MEQ/30 ML LIQUID UDCUP GT ONE (09:00)
[2018-05-16] MEDS: SODIUM HYPOCHLORITE 0.25% [HALF STRENGTH] 473 ML SOLUTION TP SCH (09:36)
[2018-05-16 11:35] VITALS: BP 95/48
[2018-05-16] MEDS: SODIUM CHLORIDE 0.9% 1,000 ML IV SCH (13:19)
[2018-05-16] MEDS: CefTRIAXone 1 GM/DEXTROSE 50 ML IV SCH (15:08)
[2018-05-16 15:58] VITALS: BP 103/56
[2018-05-16] MEDS: AZITHROMYCIN 250 MG in SODIUM CHLORIDE 0.9% 150 ML IV SCH (17:09)
[2018-05-16 19:56] VITALS: BP 108/61
[2018-05-17 00:41] VITALS: BP 111/68
[2018-05-17] MEDS: ALBUTEROL SULFATE 2.5 MG/0.5 ML NEB SOLUTION NEB SCH ×4 (02:44→19:43)
[2018-05-17] MEDS: IPRATROPIUM BROMIDE 0.5 MG/2.5 ML NEB SOLUTION NEB SCH ×4 (02:44→19:43)
[2018-05-17 04:27] VITALS: BP 125/66
[2018-05-17] MEDS: MetroNIDAZOLE 500 MG/NACL 100 ML IV SCH ×3 (05:32→21:45)
[2018-05-17 07:31] VITALS: BP 123/66
[2018-05-17 07:48] LABS: ANION GAP 10 mmol/L (8-16); CALCIUM, TOTAL 7.2 mg/dL (8.8-10.5); CARBON DIOXIDE 22 mmol/L (22-29); CHLORIDE 110 mmol/L (98-107); CREATININE 0.69 mg/dL (0.60-1.30); GLOMERULAR FILTR. RATE CALC > 60 mL/min (>60); GLUCOSE,RANDOM 137 mg/dL (70-110); POTASSIUM 3.7 mmol/L (3.5-5.1); SODIUM SERUM 142 mmol/L (136-145); UREA NITROGEN, BLOOD 11 mg/dL (7-18)
[2018-05-17] MEDS: PANTOPRAZOLE SODIUM 40 MG/VIAL IVP SCH (08:05)
[2018-05-17] MEDS: VANCOMYCIN HCL 750 MG in DEXTROSE 5%-WATER 250 ML IV SCH ×2 (08:05→20:02)
[2018-05-17] MEDS: CarBAMazepine 100 MG CHEWABLE TABLET PO SCH ×3 (08:06→21:45)
[2018-05-17] MEDS: ENOXAPARIN SODIUM 40 MG/0.4 ML PF SYRINGE SQ SCH (08:06)
[2018-05-17] MEDS: METOCLOPRAMIDE HCL 10 MG TABLET PO SCH ×4 (08:06→21:44)
[2018-05-17] MEDS: PRIMIDONE 250 MG TABLET PO SCH (08:06)
[2018-05-17] MEDS: MULTIVITAMINS WITH MINERALS, THERAPEUTIC 15 ML UDCUP GT SCH (08:06)
[2018-05-17] MEDS: SODIUM CHLORIDE 0.9% 1,000 ML IV SCH (08:08)
[2018-05-17 11:54] VITALS: BP 106/65
[2018-05-17] MEDS: SODIUM HYPOCHLORITE 0.25% [HALF STRENGTH] 473 ML SOLUTION TP SCH (11:57)
[2018-05-17] MEDS: EPOETIN ALFA 10,000 UNITS/ML VIAL SQ SCH (11:57)
[2018-05-17 15:59] VITALS: BP 124/71
[2018-05-17] MEDS: CefTRIAXone 1 GM/DEXTROSE 50 ML IV SCH (16:31)
[2018-05-17 19:45] VITALS: BP 115/61
[2018-05-17] MEDS: MUPIROCIN CALCIUM 2% 22 GM OINTMENT NASAL SCH (21:44)
[2018-05-18 00:21] VITALS: BP 116/62
[2018-05-18] MEDS: SODIUM CHLORIDE 0.9% 1,000 ML IV SCH ×3 (01:30→14:00)
[2018-05-18] MEDS: IPRATROPIUM BROMIDE 0.5 MG/2.5 ML NEB SOLUTION NEB SCH ×3 (02:46→15:01)
[2018-05-18] MEDS: ALBUTEROL SULFATE 2.5 MG/0.5 ML NEB SOLUTION NEB SCH ×3 (02:46→15:01)
[2018-05-18 04:19] VITALS: BP 101/64
[2018-05-18] MEDS: MetroNIDAZOLE 500 MG/NACL 100 ML IV SCH ×2 (05:30→14:10)
[2018-05-18 06:49] LABS: HEMATOCRIT 26.9 % (41-53); HEMOGLOBIN 9.2 g/dL (13.5-17.5); MEAN CORPUSCULAR HEMOGLOBIN 28.1 pg (26.0-34.0); MEAN CORPUSCULAR HGB CONC 34.3 G/dL (31.0-37.0); MEAN CORPUSCULAR VOLUME 82 fL (80-100); PLATELET COUNT (AUTO) 182 K/uL (150-450); RED BLOOD CELL COUNT(AUTO) 3.28 MIL/uL (4.50-5.90); RED CELL DISTRIBUTION WIDTH 16.8 % (11.5-14.5)
[2018-05-18 06:57] LABS: ANION GAP 10 mmol/L (8-16); CALCIUM, TOTAL 6.9 mg/dL (8.8-10.5); CARBON DIOXIDE 23 mmol/L (22-29); CHLORIDE 108 mmol/L (98-107); CREATININE 0.64 mg/dL (0.60-1.30); GLOMERULAR FILTR. RATE CALC > 60 mL/min (>60); GLUCOSE,RANDOM 133 mg/dL (70-110); SODIUM SERUM 141 mmol/L (136-145); UREA NITROGEN, BLOOD 11 mg/dL (7-18)
[2018-05-18 07:42] LABS: POTASSIUM 2.9 mmol/L (3.5-5.1)
[2018-05-18 08:00] VITALS: BP 114/61
[2018-05-18] MEDS: PANTOPRAZOLE SODIUM 40 MG/VIAL IVP SCH (08:47)
[2018-05-18] MEDS: MULTIVITAMINS WITH MINERALS, THERAPEUTIC 15 ML UDCUP GT SCH (08:47)
[2018-05-18] MEDS: ENOXAPARIN SODIUM 40 MG/0.4 ML PF SYRINGE SQ SCH (08:47)
[2018-05-18] MEDS: VANCOMYCIN HCL 750 MG in DEXTROSE 5%-WATER 250 ML IV SCH (08:47)
[2018-05-18] MEDS: MUPIROCIN CALCIUM 2% 22 GM OINTMENT NASAL SCH (08:47)
[2018-05-18] MEDS: METOCLOPRAMIDE HCL 10 MG TABLET PO SCH ×3 (08:48→16:39)
[2018-05-18] MEDS: PRIMIDONE 250 MG TABLET PO SCH (08:48)
[2018-05-18] MEDS: CarBAMazepine 100 MG CHEWABLE TABLET PO SCH ×2 (08:48→16:39)
[2018-05-18] MEDS: SODIUM HYPOCHLORITE 0.25% [HALF STRENGTH] 473 ML SOLUTION TP SCH (08:49)
[2018-05-18 08:59] LABS: BAND NEUTROPHILS % (MANUAL) 21 % (0-5); EOSINOPHILS % (MANUAL) 1 % (1-6); LYMPHOCYTES % (MANUAL) 8 % (22-44); METAMYELOCYTES % 1 % (0-0); MONOCYTES % (MANUAL) 2 % (2-9); SEGMENTED NEUTROPHILS % 67 % (40-70)
[2018-05-18 11:41] VITALS: BP 96/50
[2018-05-18] MEDS ORDERED: POTASSIUM CHLORIDE 10% 40 MEQ/30 ML LIQUID UDCUP GT ONE (13:15)
[2018-05-18] MEDS ORDERED: POTASSIUM CHLORIDE 20 MEQ ER TABLET GT ONE (13:45)
[2018-05-18 15:48] VITALS: BP 89/48
[2018-05-18] MEDS: CefTRIAXone 1 GM/DEXTROSE 50 ML IV SCH (16:40)
== END 2018-05-18 17:35 | DRG 871 ==
LOC: EMS 15:30 → 5N 20:29 → ICUN 20:30 → 5N 05-15 01:10
PROVIDERS: ADMIT Internal Medicine Geriatric Medicine; ATTEND Internal Medicine Geriatric Medicine
PROC: 30233N1 Transfusion of Nonautologous Red Blood Cells into Peripheral Vein, Percutaneous Approach (ICD-10-PCS; principal; 2018-05-13)
DX: A41.9 Sepsis, unspecified organism (principal); E43 Unspecified severe protein-calorie malnutrition; J69.0 Pneumonitis due to inhalation of food and vomit; G93.41 Metabolic encephalopathy; E87.2 Acidosis; Z68.1 Body mass index [BMI] 19.9 or less, adult; R13.10 Dysphagia, unspecified; R62.50 Unspecified lack of expected normal physiological development in childhood; Z51.5 Encounter for palliative care; R65.20 Severe sepsis without septic shock; L89.159 Pressure ulcer of sacral region, unspecified stage; G40.909 Epilepsy, unspecified, not intractable, without status epilepticus; I10 Essential (primary) hypertension; R62.7 Adult failure to thrive; R54 Age-related physical debility; Z87.01 Personal history of pneumonia (recurrent); Z66 Do not resuscitate; Z90.49 Acquired absence of other specified parts of digestive tract; D64.9 Anemia, unspecified; Z74.01 Bed confinement status; Z93.1 Gastrostomy status; B95.62 Methicillin resistant Staphylococcus aureus infection as the cause of diseases classified elsewhere
CPT/HCPCS: 36430; 51702; 83036; 83605; 83735; 84145; 84439; 84443; 86850; 86900; 86901; 86920; 87040; 87070; 87081; 87205; 87804; 93005; 94640; 94799; 96365; 96368; 99291; C9113; G0378; J0131; J0456; J0696; J0885; J1200; J1650; J3370; J3490; J7030; J7050; J7060; P9016